=== PATIENT | female | born 1995 | race Caucasian/White ===

== ENCOUNTER 2016-11-15 02:17 | Emergency (ER) | payer BC ==
[~2016-11-15] VITALS: Ht 160 cm; Wt 45.9 kg
[2016-11-15 02:22] VITALS: TEMP 37.1; Ht 160 cm; Wt 45.9 kg
--- NOTE | 2016-11-15 02:48 | EMERGENCY ROOM VISIT NOTE ---
History Report prepared by Ryan: Gaby Cates Under the Supervision of: Dr. Glen Hernandez M.D. First contact with patient: 02:23 Chief Complaint: MENTAL HEALTH EVALUATION Stated Complaint: MENTAL HEALTH History of Present Illness The patient is a 21 year old female who presents to the Emergency Room for a mental health evaluation. The patient states that she has been drinking. She states that she has been having issues with her boyfriend of 2 years. She reports that he also attends [employer] [facility] [address] [facility]. She denies him ever hurting her. She notes that she has never had depression before, but is feeling depressed. She states that she sometimes gets anxious. She states she has been having thoughts of hurting herself, but notes she doesn't have a plan and doesn't think she would ever go through with it. The patient notes that she did have a therapist. The patient denies a history of hurting herself, chance of , and leg swelling. Source of History: patient Onset: tonight Position: other (global) Quality: other (global) Timing: other (episode) Note: The patient denies a history of hurting herself, chance of , and leg swelling Review of Systems See HPI for pertinent positives & negatives. A total of 10 systems reviewed and were otherwise negative. Past Medical & Surgical Medical Problems: (1) No Known Active Medical Problems Family History No pertinent family history Social History Smoking Status: Never Smoker Alcohol Use: other Marital Status: in relationship Housing Status: lives with roommate Occupation Status: [employer] [address] [employer] student Current/Historical Medications Scheduled Control Pills ( Control Pills), 1 TAB PO DAILY Allergies Coded Allergies: No Known Allergies (Unverified , 11/15/16) Physical Exam Vital Signs Date Time Temp Pulse Resp B/P (MAP) Pulse Ox O2 Delivery O2 Flow Rate FiO2 11/15/16 04:20 105 20 121/85 99 Room Air 11/15/16 02:22 37.1 112 18 120/81 100 Room Air Physical Exam GENERAL: Patient is well appearing and in no acute distress. Mildly intoxicated. HEENT: No acute trauma, normocephalic atraumatic, mucous membranes moist, no nasal congestion, no scleral icterus. NECK: No stridor, no adenopathy, no meningismus, trachea is midline. LUNGS: No dyspnea. Clear to auscultation and equal bilaterally. No wheeze, no rhonchi. HEART: Regular rate and rhythm. No murmurs, rubs, gallops appreciated. ABDOMEN: Soft, nontender, bowel sounds positive, no masses appreciated, no peritonitis. BACK: No midline tenderness, no CVA tenderness EXTREMITIES: Normal motion all extremities, no cyanosis, no edema. NEUROLOGIC: Alert and oriented, no acute motor or sensory deficits, no focal weakness, cranial nerves grossly intact. SKIN: No rash, no jaundice, no diaphoresis. PSYCH: Emotional. Admits anxiety, mild depression, and nonspecific suicidal thoughts without a plan. Medical Decision & Procedures Laboratory Results 11/15/16 02:40 Red Blood Count 4.30, Mean Corpuscular Volume 88.4, Mean Corpuscular Hemoglobin 29.8, Mean Corpuscular Hemoglobin Concent 33.7, Mean Platelet Volume 9.2, Neutrophils (%) (Auto) 78.0, Lymphocytes (%) (Auto) 18.0, Monocytes (%) (Auto) 2.9, Eosinophils (%) (Auto) 0.1, Basophils (%) (Auto) 0.5, Neutrophils # (Auto) 6.62, Lymphocytes # (Auto) 1.53, Monocytes # (Auto) 0.25, Eosinophils # (Auto) 0.01, Basophils # (Auto) 0.04 11/15/16 02:40 Test 11/15/16 00:00 11/15/16 02:40 Urine Color YELLOW Urine Appearance CLEAR (CLEAR) Urine pH 6.0 (4.5-7.5) Urine Specific [place] 1.014 (1.000-1.030) Urine Protein NEG (NEG) Urine Glucose (UA) NEG (NEG) Urine Ketones NEG (NEG) Urine Occult Blood TRACE (NEG) Urine Nitrite NEG (NEG) Urine Bilirubin NEG (NEG) Urine Urobilinogen NEG (NEG) Urine Leukocyte Esterase TRACE (NEG) Urine WBC (Auto) 5-10 /hpf (0-5) Urine RBC (Auto) 0-4 /hpf (0-4) Urine Hyaline Casts (Auto) 1-5 /lpf (0-5) Urine Epithelial Cells (Auto) >30 /lpf (0-5) Urine Bacteria (Auto) 1+ (NEG) Urine Test NEG (NEG) Urine Opiates Screen NEG (NEG) Urine Methadone, Qualitative NEG (NEG) Urine Barbiturates NEG (NEG) Urine Phencyclidine (PCP) Level NEG (NEG) Ur Amphetamine/Methamphetamine NEG (NEG) MDMA (Ecstasy) Screen NEG (NEG) Urine Benzodiazepines Screen NEG (NEG) Urine Cocaine Metabolite NEG (NEG) Urine Marijuana (THC) NEG (NEG) White Blood Count 8.49 K/uL (4.8-10.8) Red Blood Count 4.30 M/uL (4.2-5.4) Hemoglobin 12.8 g/dL (12.0-16.0) Hematocrit 38.0 % (37-47) Mean Corpuscular Volume 88.4 fL (80-100) Mean Corpuscular Hemoglobin 29.8 pg (25-34) Mean Corpuscular Hemoglobin Concent 33.7 g/dl (32-36) Platelet Count 312 K/uL (130-400) Mean Platelet Volume 9.2 fL (7.4-10.4) Neutrophils (%) (Auto) 78.0 % Lymphocytes (%) (Auto) 18.0 % Monocytes (%) (Auto) 2.9 % Eosinophils (%) (Auto) 0.1 % Basophils (%) (Auto) 0.5 % Neutrophils # (Auto) 6.62 K/uL (1.4-6.5) Lymphocytes # (Auto) 1.53 K/uL (1.2-3.4) Monocytes # (Auto) 0.25 K/uL (0.11-0.59) Eosinophils # (Auto) 0.01 K/uL (0-0.5) Basophils # (Auto) 0.04 K/uL (0-0.2) RDW Standard Deviation 39.4 fL (36.4-46.3) RDW Coefficient of Variation 12.3 % (11.5-14.5) Immature Granulocyte % (Auto) 0.5 % Immature Granulocyte # (Auto) 0.04 K/uL (0.00-0.02) Anion Gap 9.0 mmol/L (3-11) Est Creatinine Clear Calc Drug Dose 97.7 ml/min Estimated GFR () 146.4 Estimated GFR (Non- 126.3 BUN/Creatinine Ratio 9.1 (10-20) Calcium Level 8.2 mg/dl (8.5-10.1) Total Bilirubin 0.2 mg/dl (0.2-1) Aspartate Amino Transf (AST/SGOT) 14 U/L (15-37) Alanine Aminotransferase (ALT/SGPT) 16 U/L (12-78) Alkaline Phosphatase 37 U/L (45-117) Total Protein 7.2 gm/dl (6.4-8.2) Albumin 3.9 gm/dl (3.4-5.0) Globulin 3.3 gm/dl (2.5-4.0) Albumin/Globulin Ratio 1.2 (0.9-2) Thyroid Stimulating Hormone (TSH) 1.550 uIu/ml (0.300-4.500) Salicylates Level < 1.7 mg/dl (2.8-20) Acetaminophen Level < 2 ug/ml (10-30) Ethyl Alcohol mg/dL 181.0 mg/dl (0-3) Laboratory results as reviewed by me. ED Course 0224: The patient was evaluated in room A7. A complete history and physical exam was performed. 0326: I reevaluated the patient and she is doing okay. 0458: I reevaluated the patient and she is asleep. I discussed the patient's case with her mother. She does not believe the patient will harm herself, but agrees with mental health evaluation once the patient is sober. 0730: The patient was signed out to Dr. Barnes and is awaiting a mental health evaluation. Medical Decision Differential: Mood Disorder, Overdose, Infectious, Electrolyte Abnormality, Cardiac, Hepatic, Endocrine, Toxicologic, Neurologic, amongst other pathologies entertained. Pleasant 21 yr old female arrives modestly intoxicated and admitting depression secondary to relationship issues and has had fleeting suicidal thoughts. Denies plan nor any act of furtherance. Admits she would not harm self. No history of suicide nor inpatient though did follow closely with therapist last year. She has Etoh that will lead to be medically clear for mental health evaluation later in am thus allowed to sleep. Mother arrived and we discussed situation and she also feels that patient is safe and that this was brought on by ETOH but agrees with further mental health evaluation in ED. Patient medically clear and will be evaluated by Mental Health. Signed out to Dr Barnes awaiting this. Medication Reconcilliation Current Medication List: was personally reviewed by me Blood Pressure Screening Patient's blood pressure: Normal blood pressure Impression Primary Impression: Depression Additional Impression: Alcohol intoxication Scribe Attestation The scribe's documentation has been prepared under my direction and personally reviewed by me in its entirety. I confirm that the note above accurately reflects all work, treatment, procedures, and medical decision making performed by me. Departure Information Patient Instructions ED Depression, My [facility] Problem Qualifiers
[2016-11-15 02:50] LABS: URINE APPEARANCE CLEAR (CLEAR); URINE BILIRUBIN NEG (NEG); URINE COLOR YELLOW; URINE EPITHELIAL CELL AUTO >30 /lpf (0-5); URINE NITRITE NEG (NEG); URINE SPECIFIC GRAVITY 1.014 (1.000-1.030); UROBILINOGEN NEG (NEG); ZZUR CULT IF INDIC CLEAN CATCH YES
[2016-11-15 02:51] LABS: PREG INTERNAL NEGATIVE QC NEG CLEAR BACKGROUND; PREG INTERNAL POSITIVE QC POS CONTROL LINE
[2016-11-15 02:53] LABS: BASO % 0.5 %; BASO ABS # 0.04 K/uL (0-0.2); COMPLETE YES; EOS % 0.1 %; IG% 0.5 %; LYMPH ABS # 1.53 K/uL (1.2-3.4); MEAN CELL VOLUME 88.4 fL (80-100); MEAN CORPUSCULAR HEMOGLOBIN 29.8 pg (25-34); MEAN CORPUSCULAR HGB CONC 33.7 g/dl (32-36); MEAN PLATELET VOLUME 9.2 fL (7.4-10.4); MONO % 2.9 %; PLATELET COUNT 312 K/uL (130-400); WHITE BLOOD COUNT 8.49 K/uL (4.8-10.8)
[2016-11-15 02:53] LABS: MANUAL MICROSCOPIC REQUIRED? NO; REVIEW REQ? NO
[2016-11-15] MEDS ORDERED: BCPILLS PO (03:04)
[2016-11-15 03:23] LABS: BUN/CREATININE RATIO 9.1 (10-20); CALCIUM 8.2 mg/dl (8.5-10.1); CREATININE 0.66 mg/dl (0.60-1.20); POTASSIUM 3.5 mmol/L (3.5-5.1)
[2016-11-15 03:26] LABS: BENZODIAZEPINE, URINE NEG (NEG); COCAINE,URINE NEG (NEG); PHENCYCLIDINE, URINE NEG (NEG)
[2016-11-15 03:28] LABS: ACETAMINOPHEN < 2 ug/ml (10-30)
[2016-11-15 03:33] LABS: ALB/GLOB RATIO 1.2 (0.9-2); THYROID STIMULATING HORMONE 1.55 uIu/ml (0.300-4.500)
--- NOTE | 2016-11-15 08:25 | EMERGENCY ROOM VISIT NOTE ---
ED Visit Note The patient was signed out to me awaiting mental health evaluation. This was performed by our staff. She is not felt to require inpatient care. The patient was discharged.
[2016-11-15 08:34] VITALS: BP 121/84; PULSE 100; O2SAT 100
== END 2016-11-15 08:35 | disposition home or self-care (01) ==
LOC: EDBD 02:17 → C.EDA 02:19
DX: F32.9 Major depressive disorder, single episode, unspecified (principal); F10.129 Alcohol abuse with intoxication, unspecified; Z79.3 Long term (current) use of hormonal contraceptives